=== PATIENT | female | born 1985 | race Caucasian/White ===

== ENCOUNTER 2020-11-27 01:33 | Emergency (ER) | payer OTHER, SELFPAY ==
--- NOTE | ~2020-11-27 | CT_ITS ---
EXAMINATION: CT abdomen pelvis w con DATE: 11/27/2020 03:59 INDICATION: Right lower quadrant abdominal pain. TECHNIQUE: Computed tomography (CT) of the abdomen and pelvis was performed with 100 mL Omnipaque 350 intravenous contrast. Automated exposure control and iterative reconstruction technique were employe d. The dose-length product was 537.12 mGy-cm. COMPARISON: CT abdomen and pelvis 04/12/2019 FINDINGS: The visualized portions of the lung bases demonstrate minimal atelectasis. No pleural effus ion. The heart size is normal. No pericardial effusion. The liver, gallbladder, spleen, pancreas, adr enal glands, and kidneys are normal. There is an umbilical hernia containing fat. There is an intraut erine device in expected position. There are no dilated loops of bowel. The appendix is normal. There are no pathologically enlarged lymph nodes. There is no free intraperitoneal fluid. There is severe lumbar spondylosis. IMPRESSION: 1. Umbilical hernia containing fat. Reviewed, dictated and finalized at location A.
[2020-11-27 02:05] VITALS: BP 149/92; PULSE 114; RESP 16; TEMP 38.4; O2SAT 97
[2020-11-27 02:15] LABS: Basophils Absolute Auto 0.1 K/mm3 (0.0-0.1); Basophils Percent Auto 0.4 % (0.2-1.2); Eosinophils Absolute Auto 0.2 K/mm3 (0-0.3); Eosinophils Percent Auto 0.8 % (0-4.4); Hematocrit 40.1 % (37.0-47.0); Hemoglobin 13.5 g/dL (12.0-15.0); Immature Granulocyte Absolute 0.13 K/mm3 (0.00-0.031); Immature Granulocyte Percent A 0.6 % (0-0.5); Lymphocytes Absolute Auto 2.25 K/mm3 (0.9-3.2); Lymphocytes Percent Auto 11.1 % (18.3-44.2); Mean Corpuscular HGB Conc 33.7 g/dl (32-36); Mean Corpuscular Hemoglobin 33.3 pg (26-34); Mean Corpuscular Volume 98.8 fl (80-100); Monocytes Absolute Auto 1.7 K/mm3 (0.1-0.6); Monocytes Percent Auto 8.1 % (2.6-8.5); Platelet Count Result 365 k/mm3 (150-375); Red Blood Count 4.06 M/mm3 (4.2-5.4); White Blood Count 20.3 K/mm3 (4.5-10.0)
[2020-11-27 02:21] LABS: Anion Gap 8 mmol/L (8-16); Blood Urea Nitrogen 14 mg/dL (7-17); Calcium 9.4 mg/dL (8.4-10.2); Carbon Dioxide 27 mmol/L (22-30); Chloride 103 mmol/L (98-107); Estimated Glomerular Filt Rate > 60; Glucose 112 mg/dL (65-105); Potassium 3.7 mmol/L (3.4-5.0); Sodium 138 mmol/L (137-145)
[2020-11-27 02:22] LABS: Add Urine Microscopic? YES; Appearance Urine Cloudy (Clear); Bacteria Urine Trace /hpf; Bilirubin Urine Negative (Negative); Blood Urine Negative (Negative); Color Urine Yellow (Yellow); Glucose Urine UA Negative (Negative); Ketones Urine Negative (Negative); Leukocyte Esterase Ur Negative LEU/UL (Negative); Mucus Urine Rare /lpf; Nitrate Urine Negative (Negative); Protein Urine Negative (Negative); RBC Urine 0-2 /hpf (0-2); Specific Grav Ur 1.025 (1.001-1.035); Squamous Epithelial Cell Urine Few /hpf (Few); Urobilinogen Urine Negative mg/dL (<2.0); WBC Urine 0-3 /hpf
[2020-11-27 02:46] VITALS: BP 133/88; PULSE 100; RESP 18; RESP 20; TEMP 37.4; O2SAT 99
[2020-11-27 02:47] LABS: Alanine Aminotransferase 17 U/L (4-35); Albumin Level 4.5 g/dL (3.5-5.1); Alkaline Phosphatase 96 U/L (38-126); Aspartate Amino Transferase 33 U/L (14-36); Bilirubin,Total 0.1 mg/dL (0.2-1.3); Lipase 46 U/L (23-300)
--- NOTE | 2020-11-27 02:53 | PC.NURSE ---
Pt presents to ED with complaints of right flank pain that onset 11/23/20. Pt states fever onset yesterday evening 10/26/20. Pt rates pain 4/10 at this time. Admits to hx of kidney infection and UTI. Pt states current pain is similar to last event so she presented to ED. Pt denies nvd, chest pain and sob. 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 Pt also denies pain and discomfort with urination. States is darker in color than usual but is otherwise normal. Pt noted to be alert and oriented x4, breathing even and unlabored with O2 saturation of 99 on room air. Pt in no obvious distress and advised to press call button for assistance.
--- NOTE | 2020-11-27 03:08 | PC.NURSE ---
Pt ambulated in [place] to restroom with a steady gait and is now back in room resting on cart in its lowest position with call button and personal items within reach. Advised to press call button for assistance.
--- NOTE | 2020-11-27 03:20 | PC.NURSE ---
EDMD presented to bedside.
[2020-11-27] MEDS: SODIUM CHLORIDE 0.9% IV 1,000 ML 999 ML IV CONT (03:26)
[2020-11-27] MEDS: KETOROLAC 30 MG/ML VIAL (*BKC) IV PUSH (03:27)
[2020-11-27] MEDS: ONDANSETRON INJ 4 MG/2 ML VIAL IV PUSH (03:27)
--- NOTE | 2020-11-27 03:33 | PC.NURSE ---
Pt to ct via cart.
--- NOTE | 2020-11-27 03:48 | PC.NURSE ---
Pt on cart sleeping with call button and personal items within reach. Vitals are stable and pt in no obvious distress.
--- NOTE | 2020-11-27 04:30 | PC.NURSE ---
Pt ambulated in [place]av[place] to restroom with steady gait noted. Pt now back in room resting on cart in its lowest position with call button and personal items within reach.
[2020-11-27 04:49] VITALS: BP 135/89; PULSE 86; RESP 18; O2SAT 99
--- NOTE | 2020-11-27 05:18 | PC.NURSE ---
Pt on cart sleeping with call button and personal items within reach. Vitals stable and in pt in no obvious distress.
--- NOTE | 2020-11-27 05:18 | ED.GENADULT ---
HPI - General Adult General Chief complaint: Urogenital-Female Stated complaint: flank pain Time Seen by Provider: 11/27/20 03:12 History of Present Illness HPI narrative: Patient 34-year-old female presents to emergency department chief complaint of right flank pain and abdominal pain. Patient reports that she has prior history of UTIs and had a pyelonephritis and sepsis that previously occurred and the patient was concerned that she might be starting to develop urinary infection and kidney infection again. Patient reports she had a fever Related Data Allergies Allergy/AdvReac Type Severity Reaction Status Date / Time amoxicillin Allergy Intermediate urticaria Verified 11/27/20 03:19 clavulanic acid Allergy Intermediate urticaria Verified 11/27/20 03:19 Penicillins Allergy Unknown Verified 06/20/17 09:21 Sulfa (Sulfonamide Allergy Unknown Verified 06/20/17 09:22 Antibiotics) sulfamethoxazole Allergy Unknown Verified 04/26/19 01:03 trimethoprim Allergy Unknown Verified 04/26/19 01:03 vancomycin Allergy Unknown Verified 06/20/17 09:21 Review of Systems Review of Systems: Narrative: A 10 system review of systems was completed on the patient and is negative except for what is stated in the HPI. Nursing and ancillary documentation was reviewed. [facility] Social History Social History Smoking status: Current every day smoker Alcohol intake: never Comments Prior history of pyelonephritis and sepsis Exam Narrative: Exam Narrative: GENERAL: Well-appearing, well-nourished, and in no acute distress. HEAD: Normocephalic, atraumatic. EYES: PERRLA and EOMI. ENT: Nares clear, no rhinorrhea or epistaxis. Mucous membranes moist. NECK: Supple. CHEST: Clear to auscultation. No respiratory distress. HEART: Regular rate and rhythm. No murmur heard. Normal peripheral pulses. ABDOMEN: Soft, nontender, nondistended, normal active bowel sounds. There is tenderness to palpation in the right flank EXTREMITIES: Normal range of motion. No edema. SKIN: Warm, dry, no rash. NEURO: No focal deficits. Alert and oriented x3. PSYCH: Normal mood and affect. Course Course Emergency Course: Patient's white blood cell count was moderately elevated at 20. Lactic acid was normal CT scan of the abdomen pelvis showed no evidence of acute abnormalities. Patient's urinalysis was cloudy and did show some trace bacteria given the patient reports this feels exactly like when she had pyelonephritis before in the past patient will be clinically treated for a urinary infection. Vital Signs Vital signs: Vital Signs Temperature 38.4 C H 11/27/20 02:05 Pulse Rate 114 H 11/27/20 02:05 Respiratory Rate 16 11/27/20 02:05 Blood Pressure 149/92 H 11/27/20 02:05 Pulse Oximetry 97 11/27/20 02:05 Temperature 37.4 C 11/27/20 02:46 Pulse Rate 86 11/27/20 04:49 Respiratory Rate 18 11/27/20 04:49 Blood Pressure 135/89 11/27/20 04:49 Pulse Oximetry 99 11/27/20 04:49 Medical Decision Making Vital Signs Vital Signs: Vital Signs Temperature 38.4 C H 11/27/20 02:05 Pulse Rate 114 H 11/27/20 02:05 Respiratory Rate 16 11/27/20 02:05 Blood Pressure 149/92 H 11/27/20 02:05 Pulse Oximetry 97 11/27/20 02:05 Temperature 37.4 C 11/27/20 02:46 Pulse Rate 86 11/27/20 04:49 Respiratory Rate 18 11/27/20 04:49 Blood Pressure 135/89 11/27/20 04:49 Pulse Oximetry 99 11/27/20 04:49 Lab Data Result diagrams: 11/27/20 02:00 11/27/20 02:00 Labs: Lab Results 11/27/20 11/27/20 11/27/20 Range/Units 02:00 02:00 02:00 WBC 20.3 H (4.5-10.0) K/mm3 RBC 4.06 L (4.2-5.4) M/mm3 Hgb 13.5 (12.0-15.0) g/dL Hct 40.1 (37.0-47.0) % MCV 98.8 (80-100) fl MCH 33.3 (26-34) pg MCHC 33.7 (32-36) g/dl RDW 13.0 (11.5-14.5) % Plt Count 365 (150-375) k/mm3 MPV 10.0 (7.4-10.4) fl Imm
[2020-11-27 05:45] VITALS: BP 135/86; PULSE 83; RESP 18; TEMP 36.9; O2SAT 99
[2020-11-27 05:46] VITALS: BP 135/86; PULSE 83; RESP 18; TEMP 36.9; O2SAT 99
== END 2020-11-27 05:47 | disposition home or self-care (01) ==
PROVIDERS: Emergency Provider Emergency Medicine
DX: N30.00 Acute cystitis without hematuria (principal); F17.200 Nicotine dependence, unspecified, uncomplicated
CPT/HCPCS: 36415; 74177; 80048; 80076; 81001; 81025; 83605; 83690; 85025; 87040; 96361; 96374; 96375; 99284; J1885; J2405; J7030; Q9967

== ENCOUNTER 2021-04-25 18:04 | Emergency (ER) | payer OTHER, SELFPAY ==
--- NOTE | ~2021-04-25 | XR_ITS ---
EXAMINATION: XR knee RT 3V DATE: 04/25/2021 22:04 INDICATION: One day of right knee pain post injury TECHNIQUE: Anteroposterior, oblique and crosstable lateral views of the right knee were obtained COMPARISON: None. FINDINGS: Alignment is normal. No fracture. Small marginal osteophytes in the medial compartment and tiny regan inal ossified to the lateral and patellofemoral compartments with relatively preserved joint space on nonweightbearing imaging. Small right knee joint effusion without layering lipohemarthrosis. Soft ti ssues are unremarkable. IMPRESSION: 1. Small right knee joint effusion. No acute osseous abnormality. Reviewed, dictated and finalized at location A.
[2021-04-25 18:32] VITALS: BP 157/83; PULSE 87; RESP 18; TEMP 36.4; O2SAT 100
[2021-04-25 21:26] VITALS: BP 145/98; PULSE 88; RESP 12; O2SAT 97
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
[2021-04-25 23:30] VITALS: BP 138/89; PULSE 90; RESP 14; O2SAT 96
[2021-04-25] MEDS: HYDROcodone/acetaminophen (*CRX) 5-325 MG TABLET 1 TAB PO (23:32)
[2021-04-25] MEDS: KETOROLAC 30 MG/ML VIAL (*BKC) IM (23:34)
== END 2021-04-25 23:30 | disposition home or self-care (01) ==
PROVIDERS: Emergency Provider Emergency Medicine
DX: S80.01XA Contusion of right knee, initial encounter (principal); F17.200 Nicotine dependence, unspecified, uncomplicated; W22.8XXA Striking against or struck by other objects, initial encounter
CPT/HCPCS: 73562; 96372; 99283; A9270; J1885

== ENCOUNTER 2023-08-07 19:34 | Emergency (ER) | payer OTHER, SELFPAY ==
--- NOTE | 2023-08-07 19:43 | ED.FEMALEGU ---
HPI - Female Genitourinary General Chief complaint: Urogenital-Female Stated complaint: Vaginal Problems Time Seen by Provider: 08/07/23 19:43 Source: patient Mode of arrival: ambulatory Limitations: no limitations History of Present Illness HPI Narrative: Patient is a 37-year-old female who presents with thick white vaginal discharge for 5 days. Patient states she tried [id number] 3 day Monistat which made symptoms worse and made area more sensitive. Patient also reports urinary frequency and burning. Denies history of UTIs. Denies any low back pain, fever, chills, nausea, vomiting, diarrhea. MD elicited complaint: dysuria Related Data Allergies Allergy/AdvReac Type Severity Reaction Status Date / Time amoxicillin Allergy Intermediate urticaria Verified 08/07/23 19:58 clavulanic acid Allergy Intermediate urticaria Verified 08/07/23 19:58 Penicillins Allergy Unknown Rash Verified 08/07/23 19:58 Sulfa (Sulfonamide Allergy Unknown Rash Verified 08/07/23 19:58 Antibiotics) sulfamethoxazole Allergy Unknown Rash Verified 08/07/23 19:58 trimethoprim Allergy Unknown Rash Verified 08/07/23 19:58 vancomycin Allergy Unknown Redness of Verified 08/07/23 19:58 Skin Review of Systems Review of Systems: All systems reviewed & are unremarkable except as noted in HPI and below Constitutional: Constitutional: Denies chills, Denies fever(s), Denies headache(s), Denies malaise and Denies weakness Eyes: Eyes: Denies change in vision, Denies eye discharge and Denies irritation ENT: Denies otalgia, Denies headache(s), Denies nasal congestion, Denies nasal discharge, Denies sinus pain and Denies sore throat Cardiovascular: Cardiovascular: Denies chest pain, Denies edema, Denies palpitations and Denies dyspnea Respiratory: Respiratory: Denies cough and Denies dyspnea Gastrointestinal: Gastrointestinal: Denies abdominal pain, Denies diarrhea, Denies nausea and Denies vomiting Genitourinary: Genitourinary: Denies hematuria, Reports nocturia, Reports dysuria, Denies flank pain, Reports urinary urgency and Reports vaginal discharge Musculoskeletal: Musculoskeletal: Denies back pain and Denies numbness Integumentary/Breasts: Skin/Breast: Denies pruritus and Denies rash Neurologic: Denies headache(s), Denies numbness and Denies weakness Psychiatric: Psychiatric: Reports no additional psychiatric complaints Endocrine: Endocrine: Denies palpitations PMFSH Social History Social History Smoking status: Current every day smoker Alcohol intake: never Comments At time of signature, agree with nursing past medical, surgical, social and family history. There is no relevant family history pertinent to the presenting complaint. Exam Const: General: cooperative, healthy appearing, comfortable, no acute distress and well nourished Nutritional Appearance: well nourished Orientation/consciousness: patient oriented x3 HENMT: Head: normocephalic and atraumatic Ears: external ears normal Face/Nose/Sinus: Normal external nose present, Normal nares present and normal facial exam Face and sinus: normal facial exam Eyes: General: appearance normal, both eyes and all related structures Pupils: Equal, round and reactive pupils present EOM: EOMs intact bilaterally Neck: Neck: normal visual inspection, full ROM and supple Chest: Chest palpation & inspection: normal inspection of the chest Resp: Effort & Inspection: normal respiratory effort and able to speak in complete sentences Cardio: Rate: regular rate Rhythm: regular rhythm GI: Inspection: normal to inspection GI Palp: No abdominal tenderness and Yes Soft to palpation : General: Yes no CVA tenderness Back/Spine/Pelvis: Back: no CVA tenderness Skin: General skin exam: normal color and no rashes or lesions noted Neuro: General: patient oriented x3 and moves all extremities Cranial nerves: Yes Equal, round and reactiv
[2023-08-07 19:47] VITALS: BP 124/88; PULSE 129; RESP 16; TEMP 36.9; O2SAT 99
[2023-08-07 19:58] VITALS: PULSE 117
[2023-08-07 19:59] VITALS: PULSE 117
== END 2023-08-07 20:03 | disposition home or self-care (01) ==
PROVIDERS: Emergency Provider Nurse Practitioner Family
DX: B37.31 Acute candidiasis of vulva and vagina (principal); N30.01 Acute cystitis with hematuria; F17.210 Nicotine dependence, cigarettes, uncomplicated
CPT/HCPCS: 81003; 87077; 87086; 87088; 99213; G0463

== ENCOUNTER 2023-11-18 11:51 | Emergency (ER) | payer OTHER, SELFPAY ==
--- NOTE | ~2023-11-18 | XR_ITS ---
EXAMINATION: XR foot RT min 3V DATE: 11/18/2023 12:18 INDICATION: Plantar right foot pain TECHNIQUE: Dorsoplantar, two oblique and lateral views of the right foot were obtained. COMPARISON: None. FINDINGS: Alignment is normal. No fracture. Joint spaces are normal. Moderate size plantar calcaneal spur. Soft tissues are unremarkable. IMPRESSION: 1. Moderate-sized plantar calcaneal spur. No acute osseous abnormality. Reviewed, dictated and finalized at location A.
[2023-11-18 11:53] VITALS: BP 115/82; PULSE 102; RESP 14; TEMP 36.6; O2SAT 100
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
[2023-11-18] MEDS: IBUPROFEN 600 MG TABLET PO (12:19)
== END 2023-11-18 13:05 | disposition home or self-care (01) ==
PROVIDERS: Emergency Provider Student in an Organized Health Care Education/Training Program
DX: M77.31 Calcaneal spur, right foot (principal); F17.290 Nicotine dependence, other tobacco product, uncomplicated
CPT/HCPCS: 73630; 99283; A9270

== ENCOUNTER 2024-04-28 19:06 | Emergency (ER) | payer OTHER, SELFPAY ==
[2024-04-28 19:14] VITALS: BP 148/88; PULSE 114; RESP 20; TEMP 37.6; O2SAT 100
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
== END 2024-04-28 19:52 | disposition home or self-care (01) ==
PROVIDERS: Emergency Provider Nurse Practitioner Family
DX: T21.21XA Burn of second degree of chest wall, initial encounter (principal); T79.9XXA Unspecified early complication of trauma, initial encounter; X11.8XXA Contact with other hot tap-water, initial encounter; F17.200 Nicotine dependence, unspecified, uncomplicated
CPT/HCPCS: 99213; G0463

== ENCOUNTER 2024-06-13 10:48 | Emergency (ER) | payer OTHER, SELFPAY ==
[2024-06-13] VITALS (22 sets, daily range): BP systolic 112–142; BP diastolic 66–94; PULSE 87–121; RESP 12–26; TEMP 37–38.9; O2SAT 95–98
--- NOTE | ~2024-06-13 | XR_ITS ---
XR chest 2V INDICATION: Cough and fever TECHNIQUE: 2 view chest. FINDINGS: 05/23/2016 There is mild bilateral interstitial prominence and peribronchial cuffing. There is no focal consoli dation, pleural effusion, or pneumothorax. The cardiomediastinal silhouette is normal. IMPRESSION: 1. Findings most consistent with bronchiolitis versus an atypical or viral pneumonia. Reviewed, dictated and finalized at location B. PHONE TECHNICIAN IMPRESSION: 1. Findings most consistent with bronchiolitis versus an atypical or viral pne [facility].
--- NOTE | ~2024-06-13 | CT_ITS ---
EXAMINATION: CT chest abdomen pelvis w con DATE: 06/13/2024 14:06 INDICATION: Fever. Cough. Back pain. TECHNIQUE: Computed tomography (CT) of the chest, abdomen, and pelvis was performed with 100 mL Omnip aque 350 intravenous contrast. Automated exposure control and iterative reconstruction technique were employed. The dose-length product was 622.58 mGy-cm. COMPARISON: CT abdomen and pelvis 11/27/2020 FINDINGS: CHEST CT: There are airspace opacities, centrilobular nodules, and tree-in-bud opacities in right lower lobe pr edominantly involving the superior segment and in anterior segment left upper lobe, consistent with p neumonia. No pleural effusion. The heart size is normal. No pericardial effusion. There is mild thor acic spondylosis. ABDOMEN/PELVIS CT: The liver, gallbladder, spleen, pancreas, adrenal glands, and kidneys are normal. There is an intraut erine device in expected position. There is a 2.7 cm dominant follicle in right ovary. There are no d ilated loops of bowel. The appendix is normal. There are no pathologically enlarged lymph nodes. Ther e is no free intraperitoneal fluid. There is severe lumbar spondylosis. IMPRESSION: 1. Pneumonia involving right lower lobe and anterior segment left upper lobe. Reviewed, dictated and finalized at location A. LE DATABASE ADMINISTRATOR
--- NOTE | 2024-06-13 12:05 | ECG_ITS ---
Test Date: 2024-06-13 12:39:59 Measurements Intervals [place] Rate: 100 P: 8 MI: 115 QRS: 66 QRSD: 97 T: 52 QT: 346 QTc: 447 Interpretive Statements SINUS TACHYCARDIA WITH SHORT MI INTERVAL INCOMPLETE RIGHT BUNDLE BRANCH BLOCK DELAYED PRECORDIAL R/S TRANSITION BORDERLINE ECG No previous ECG available for comparison Electronically Signed On 06-13-2024 13:04:[address] by Guillaume Bustos D.O.
--- NOTE | 2024-06-13 12:09 | ED_ITS ---
This patients visit was performed by a mid-level provider and myself, an MD with all portions of the MDM performed/reviewed by myself with the following additions: HPI - Fever General Chief Complaint: Fever Stated Complaint: fever, diarrhea, not doing good Time Seen by Provider: 06/13/24 11:20 Source: patient Mode of arrival: ambulatory Limitations: no limitations History of Present Illness HPI Narrative: Patient is a 38-year-old female who presents to the ER with 4 days of fever and cough. She is unsure if she has had any recent sick contacts, but reports she works at [employer]. Patient endorses a mild headache, body aches, and mild rib cage pain. She denies any previous medical history related to this ER visit. Patient denies chest pain, shortness of breath, or urinary symptoms. Related Data Allergies Allergy/AdvReac Type Severity Reaction Status Date / Time amoxicillin Allergy Intermediate urticaria Verified 06/13/24 10:56 clavulanic acid Allergy Intermediate urticaria Verified 06/13/24 10:56 Penicillins Allergy Unknown Rash Verified 06/13/24 10:56 Sulfa (Sulfonamide Allergy Unknown Rash Verified 06/13/24 10:56 Antibiotics) sulfamethoxazole Allergy Unknown Rash Verified 06/13/24 10:56 trimethoprim Allergy Unknown Rash Verified 06/13/24 10:56 vancomycin Allergy Unknown Redness of Verified 06/13/24 10:56 Skin Review of Systems 2 Review of Systems: All systems reviewed & are unremarkable except as noted in HPI and below PMFSH Past Medical History Medical History Abdominal abscess Social History Social History Smoking status: Current every day smoker Alcohol intake: never Exam Narrative: GENERAL: Ill-appearing, well-nourished, non-toxic, in no acute distress. HEAD: Normocephalic, atraumatic. NECK: Supple. No adenopathy, no masses. RESPIRATORY: Airway patent, respirations nonlabored. Clear to auscultation bilaterally, no rales, rhonchi, wheezing. CARDIOVASCULAR: Tachycardia without murmurs, rubs, or gallops. Peripheral pulses 2+ and equal bilaterally. ABDOMINAL: Soft, nontender, nondistended, no hepatosplenomegaly. Normoactive BS. MUSCULOSKELETAL: Moves all extremities. Strength/ROM intact without gross deformities. SKIN: Warm, dry, normal color. No rashes. NEURO: A&O X3. Speech clear. Cranial nerves II-XII grossly intact. No ataxic movements. PSYCHIATRIC: Appropriate mood and affect. Normal interaction. Course Vital Signs Vital signs: Vital Signs Temperature 38.9 C H 06/13/24 10:54 Pulse Rate 116 H 06/13/24 10:54 Respiratory Rate 22 H 06/13/24 10:54 Blood Pressure 130/91 H 06/13/24 10:54 Pulse Oximetry 97 06/13/24 10:54 Oxygen Delivery Room Air 06/13/24 10:54 Temperature 37.0 C 06/13/24 15:45 Pulse Rate 87 06/13/24 15:45 Respiratory Rate 13 06/13/24 15:45 Blood Pressure 119/89 06/13/24 13:46 Pulse Oximetry 98 06/13/24 15:45 Oxygen Delivery Room Air 06/13/24 10:54 MDM - Fever MDM Narrative Medical decision making narrative: Patient is a 38-year-old female who presents to the ER with 4 days of fever and cough. She is unsure if she has had any recent sick contacts, but reports she works at [employer]. Patient endorses a mild headache, body aches, and mild rib cage pain. She denies any previous medical history related to this ER visit. Patient denies chest pain, shortness of breath, or urinary symptoms. Patient's physical exam shows patient is tachycardic and ill-appearing. Her CBC indicates a white blood cell count 11, hemoglobin of 15, and her neutrophil count was 77.7%. Patient's chemistry indicated a sodium of 134, chloride of 97, creatinine 0.6, glucose of 115. Her CRP was 4.5 and total protein was 9.0. Patient's urinalysis did not indicate a UTI. Her chest x-ray showed Findings most consistent with bronchiolitis versus an atypical or viral pneumonia. Patient's CT chest/abdomen/pelvis scan indicates pneumonia involving right lower lobe and anterior segment left upper lobe. Her respiratory panel was negative for COVID, RSV, and the flu. She was treated with azithromycin IV in the ER and will be sent home with with a Z-Candelario. Pt's fever came down to normal range after Toradol and Tylenol administration. Will discharge patient home with advice to follow up with her primary care provider as possible. She verbalizes understanding of plan and is in agreement. Differential Diagnosis Differential diagnosis: Likely community acquired pneumonia, viral infection, influenza and other (mycoplasma pneumonia, COVID) Lab Data Attestation: I reviewed the patient's lab results. 06/13/24 12:43 06/13/24 12:43 Labs: Lab Results 06/13/24 Range/Units 12:43 WBC 11.0 H (4.5-10.0) K/mm3 RBC 4.72 (4.2-5.4) M/mm3 Hgb 15.1 H (12.0-15.0) g/dL Hct 43.9 (37.0-47.0) % MCV 93.0 (80-100) fl MCH 32.0 (26-34) pg MCHC 34.4 (32-36) g/dl RDW 12.2 (11.5-14.5) % Plt Count 261 (150-375) k/mm3 MPV 9.8 (7.4-10.4) fl Immature Gran % (Auto) 0.4 (0-0.5) % Neut % (Auto) 77.7 H (45.5-73.1) % Lymph % (Auto) 12.9 L (18.3-44.2) % Creek % (Auto) 8.5 (2.6-8.5) % Eos % (Auto) 0.2 (0-4.4) % Baso % (Auto) 0.3 (0.2-1.2) % Lymph # (Auto) 1.42 (0.9-3.2) K/mm3 [place] # (Auto) 0.9 H (0.1-0.6) K/mm3 Eos # (Auto) 0.0 (0-0.3) K/mm3 Baso # (Auto) 0.0 (0.0-0.1) K/mm3 Abs Immat Gran (auto) 0.04 H (0.00-0.031) K/mm3 Absolute Neuts (auto) 8.5 H (1.3-6.7) K/mm3 Absolute Nucleated RBC 0.000 (0.0-0.012) K/mm3 Nucleated RBC % 0.0 (0.0-0.2) % PT 13.6 (11.1-14.7) Seconds INR 1.0 APTT 28.9 (22.3-36.8) Seconds Sodium 134 L (137-145) mmol/L Potassium 4.1 (3.4-5.0) mmol/L Chloride 97 L (98-107) mmol/L Carbon Dioxide 27 (22-30) mmol/L Anion Gap 10 (4-12) mmol/L BUN 8 D (7-17) mg/dL Creatinine 0.60 L (0.7-1.0) mg/dL Estim Creat Clear Calc 111 ml/min Estimated GFR > 60 (59 - ) Glucose 115 H (65-110) mg/dL Lactic Acid 1.4 (0.7-2.0) mmol/L Calcium 9.6 (8.4-10.2) mg/dL Total Bilirubin 0.4 (0.2-1.3) mg/dL AST 31 (14-36) U/L ALT 31 (6-35) U/L Alkaline Phosphatase 108 (38-126) U/L C-Reactive Protein 4.5 H (<1.0) mg/dL Total Protein 9.0 H (6.3-8.2) g/dL Albumin 4.8 (3.5-5.1) g/dL Urine Color Yellow (Yellow) Urine Appearance Cloudy H (Clear) Urine pH 6.0 (5.0-9.0) Ur Specific [place] 1.019 (1.001-1.035) Urine Protein Trace (Negative) mg/dL Urine Glucose (UA) Negative (Negative) mg/dL Urine Ketones Negative (Negative) mg/dL Ur Blood (Man) 1+ H (Negative) Urine Nitrate Negative (Negative) Urine Bilirubin Negative (Negative) Urine Urobilinogen 1.0 (<2.0) mg/dL Leukocyte Esterase Rfl Trace H (Negative) ULI/UL Urine RBC 3-5 H (0-2) /hpf Urine WBC 0-5 (0-3) /hpf Ur Squamous Epith Cells Few (Few) /hpf Urine Bacteria None seen /hpf Urine Casts 0-2 Influenza A (RT-PCR) Negative (Negative) Influenza B (RT-PCR) Negative (Negative) RSV (RT-PCR) Negative (Negative) SARS-CoV-2 RNA (RT-PCR) Negative (Negative) Imaging Data Attestation: I personally reviewed and interpreted this imaging study as follows: Radiologist's impression: Impressions Chest X-Ray 06/13/24 12:38 IMPRESSION: 1. Findings most consistent with bronchiolitis versus an atypical or viral pneumonia. Chest/Abdomen/Pelvis CT 06/13/24 14:25 IMPRESSION: 1. Pneumonia involving right lower lobe and anterior segment left upper lobe. Discharge Plan Discharge Clinical Impression: Community acquired pneumonia Patient Disposition: Home, Self-Care Condition: Stable Instructions: Antibiotic Form, Bacterial Pneumonia (ED) Additional Instructions: Please take all medications as prescribed. Complete your entire antibiotic regimen. Please return back to the ER with any worsening symptoms. Follow-up with your primary care provider in the next week. Continue to take Tylenol and ibuprofen for fever and pain control. Prescriptions: New azithromycin [Zithromax Z-Candelario] 250 mg tablet See Rx Instructions .ROUTE .COMPLEX Qty: 6 0RF Rx Instructions: For 250 mg dose pack: take 500 mg today (day 1), then 250 mg for 4 days (days 2-5) No Action cephalexin 500 mg tablet 500 mg PO Q8H Qty: 30 0RF mupirocin [Centany] 2 % ointment 1 applic topical BID Qty: 22 1RF Follow-up/Referrals: UNKNOWN,DOCTOR [Primary Care Provider] - Stand Alone Forms: Work/School Release IP Time of Disposition: 17:26
[2024-06-13 12:51] LABS: Basophils Percent Auto 0.3 % (0.2-1.2); Eosinophils Percent Auto 0.2 % (0-4.4); Hematocrit 43.9 % (37.0-47.0); Hemoglobin 15.1 g/dL (12.0-15.0); Immature Granulocyte Absolute 0.04 K/mm3 (0.00-0.031); Immature Granulocyte Percent A 0.4 % (0-0.5); Lymphocytes Absolute Auto 1.42 K/mm3 (0.9-3.2); Lymphocytes Percent Auto 12.9 % (18.3-44.2); Mean Corpuscular HGB Conc 34.4 g/dl (32-36); Mean Platelet Volume 9.8 fl (7.4-10.4); Monocytes Absolute Auto 0.9 K/mm3 (0.1-0.6); Monocytes Percent Auto 8.5 % (2.6-8.5); Neutrophils Absolute Auto 8.5 K/mm3 (1.3-6.7); Neutrophils Percent Auto 77.7 % (45.5-73.1); Platelet Count Result 261 k/mm3 (150-375); Red Blood Count 4.72 M/mm3 (4.2-5.4); Red Cell Distribution Width 12.2 % (11.5-14.5)
[2024-06-13] MEDS: SODIUM CHLORIDE 0.9% IV 1,000 ML 999 ML IV CONT (12:51)
[2024-06-13] MEDS: KETOROLAC 15 MG/ML VIAL (*BKC) IV PUSH (12:51)
[2024-06-13] MEDS: ACETAMINOPHEN 500 MG TABLET 1000 MG PO (12:52)
[2024-06-13 13:00] LABS: Lactic Acid Reflex 1.4 mmol/L (0.7-2.0)
[2024-06-13 13:02] LABS: Alanine Aminotransferase 31 U/L (6-35); Albumin Level 4.8 g/dL (3.5-5.1); Alkaline Phosphatase 108 U/L (38-126); Anion Gap 10 mmol/L (4-12); Aspartate Amino Transferase 31 U/L (14-36); Bilirubin,Total 0.4 mg/dL (0.2-1.3); Blood Urea Nitrogen 8 mg/dL (7-17); CRP 4.5 mg/dL (<1.0); Calcium 9.6 mg/dL (8.4-10.2); Carbon Dioxide 27 mmol/L (22-30); Chloride 97 mmol/L (98-107); Estimated CRCL calculation 111 ml/min; Estimated Glomerular Filt Rate > 60; Glucose 115 mg/dL (65-110); Partial Thromboplastin Time 28.9 Seconds (22.3-36.8); Potassium 4.1 mmol/L (3.4-5.0); Prothrombin Time 13.6 Seconds (11.1-14.7); Sodium 134 mmol/L (137-145)
[2024-06-13 13:04] LABS: Add Urine Microscopic? YES; Appearance Urine Cloudy (Clear); Bacteria Urine None Seen /hpf; Bilirubin Urine Negative (Negative); Blood Urine 1+ (Negative); Color Urine Yellow (Yellow); Glucose Urine UA Negative (Negative); Ketones Urine Negative (Negative); Leukocyte Esterase Ur Trace LEU/UL (Negative); Nitrate Urine Negative (Negative); Non Pathogenic Casts 0-2; Protein Urine Trace mg/dL (Negative); Specific Grav Ur 1.019 (1.001-1.035); Squamous Epithelial Cell Urine Few /hpf (Few); WBC Urine 0-5 /hpf (0-3)
[2024-06-13 13:36] LABS: Influenza A QL RT-PCR Negative (Negative); Influenza B QL RT-PCR Negative (Negative); RSV RNA, RT-PCR Negative (Negative); SARS-CoV-2 RNA PCR Negative (Negative)
[2024-06-13] MEDS: AZITHROMYCIN 500 MG/NS 250 ML 500 MG/250 ML BAG 250 MG IVPB (15:03)
== END 2024-06-13 17:41 | disposition home or self-care (01) ==
PROVIDERS: Emergency Provider Registered Nurse
DX: J18.9 Pneumonia, unspecified organism (principal); Z20.822 Contact with and (suspected) exposure to COVID-19
CPT/HCPCS: 36415; 71046; 71260; 74177; 80053; 81001; 83605; 85025; 85610; 85730; 86140; 87040; 87637; 93005; 96361; 96365; 96366; 96375; 99284; A9270; J0456; J1885; J7030; Q9967